=== PATIENT | female | born 1960 | race Hispanic/Latino ===

== ENCOUNTER → 2017-04-01 | Day surgery (SDC) | payer OTHER ==
[~2017-04-01] VITALS: Ht 157.5 cm; Wt 56.7 kg
[~2017-04-01] MED LIST: METRONIDAZOLE; PANTOPRAZOLE SO40 M1 PO
--- NOTE | 2017-04-01 09:15 | Operative Report ---
Operative/Inv Procedure Report Surgery Date: 04/01/17 Name of Procedure: right ESWL Pre-Operative Diagnosis: Right 6mm midpole stone, radiolucent Post-Operative Diagnosis: same Estimated Blood Loss: scant Surgeon/Human Factors Ergonomist: CALI CARR MD Anesthesia: moderate sedation Complications: none Condition: stable Operative Indication: right renal colic Operative/Procedure Note Note: 56 yo female with a hx of right renal colic. She wanted to have it treated with ESWL after hearing her options for therapy. She was identified in the holding area and consented for a right extracorporeal shockwave lithotripsy. She was given the risks, benefits and alternatives of the surgery. All questions were answered. patient was taken to the operating room. She was placed in the supine position and positoned for optimal stone fragmentation via US. The stone was not visible by flouroscopy very well. Time out was performed. ESWL was started at power of 10 for 100 shocks, then 11 for 100 shocks, 12 for 100 shocks, 13 for 100 shocks and finally 20 for 2100 shocks. Patient tolerated the procedure well. The stone was very well fragmented via US view. Findings: 6mm midpole stone on US not visible on flouroscopy in multiple views. Discharge Disposition: Same Day Admissions
== END ==
LOC: STS 04:05
DX: N20.0 Calculus of kidney (principal)
CPT/HCPCS: J2250